=== PATIENT | female | born 1965 | race Caucasian/White ===

== ENCOUNTER 2017-02-19 23:24 | Emergency (ER) | payer BC, OTHER ==
[~2017-02-19] VITALS: Ht 157.5 cm; Wt 64.0 kg
[~2017-02-19 23:24] MED LIST: ESTR1TAB2 PO; FRRS300 PO; IBUP-1428 PO; MEDR10TA PO
[2017-02-19 23:29] VITALS: TEMP 36.7; Ht 157.5 cm; Wt 64.0 kg
[2017-02-19] MEDS ORDERED: MAGN250T3 PO (23:48)
--- NOTE | 2017-02-19 23:49 | EMERGENCY ROOM VISIT NOTE ---
History First contact with patient: 23:40 Chief Complaint: SHOULDER PAIN Stated Complaint: SHOULDER PAIN, FELL ON IT History of Present Illness The patient is a 52 year old female who presents to the Emergency Room with complaints of right shoulder pain after a fall. The patient states that she was walking out of her camper and missed a step, causing her to fall onto her right shoulder. She rates her current discomfort a 5/10. She states that she struck her right cheek lately on the ground. There was no loss of consciousness. She denies any headache, nausea or vomiting. She denies any numbness or weakness. She denies any previous injuries to his shoulder. She did not take anything for pain. Her pain is worsened by movement. Review of Systems A complete 10 point review of systems was reviewed with the patient with pertinent positives and negatives as per history of present illness. All else were negative. Social History Smoking Status: Never Smoker Marital Status: Current/Historical Medications Scheduled Magnesium (Magnesium 250 mg), 500 MG PO DAILY Allergies Coded Allergies: No Known Allergies (Unverified , 02/19/17) Physical Exam Vital Signs Date Time Temp Pulse Resp B/P (MAP) Pulse Ox O2 Delivery O2 Flow Rate FiO2 02/19/17 23:29 36.7 78 16 143/85 98 Room Air Physical Exam VITALS: Vitals are noted on the nurse's note and reviewed by myself. Vital signs stable. GENERAL: This is a 52-year-old female, in no acute distress, nondiaphoretic, well-developed well-nourished. SKIN: No erythema, edema or bruising. HEENT: Normocephalic. PERRLA. EOMI. Nares patent. Mucous membranes moist. Neck is supple without nuchal rigidity. HEART: Regular rate and rhythm without murmurs gallops or rubs. LUNGS: Clear to auscultation bilaterally without wheezes, rales or rhonchi. MUSCULOSKELETAL: There is mild tenderness to palpation of the right lateral shoulder/proximal humerus. Full range of motion of the shoulder and the right upper extremity. Radial pulse 2+. NEURO: Patient was alert and oriented to person place and time. Normal sensation to light and sharp touch. Medical Decision & Procedures ER Provider Diagnostic Interpretation: RIGHT SHOULDER X-RAY: No obvious fractures or dislocations identified. Medical Decision Differential diagnosis includes fracture, contusion, dislocation, sprain, among others. The patient was evaluated as above. X-ray of the right shoulder was obtained and reviewed by myself and does not show any obvious fractures. Patient was placed in an arm sling for her comfort. She was advised to follow-up with her primary care provider or orthopedics if she has continued pain. The patient verbalized understanding of my assessment and treatment plan and was discharged home in good condition. Impression Primary Impression: Contusion of right shoulder Departure Information Dispostion Home / Self-Care Condition GOOD Referrals No Doctor, Assigned (PCP) Patient Instructions My [facility] Additional Instructions You have been treated in the Emergency Department for Shoulder Pain. For pain control, you can use the following [id number] medicines (if >12 yo): - Regular strength (325mg/tab) Tylenol (acetaminophen) 2 tabs every 4-6 hours as needed. Do not exceed 12 tablets in a 24 hour period. Avoid taking more than 4 grams (4000 mg) of Tylenol per day. This includes any other sources of acetaminophen you may take on a regular basis. - Regular strength (200 mg/tab) Advil (ibuprofen) 1-2 tabs every 4-6 hours as needed. Do not exceed a dose of 3200 mg per day. If this is a recent injury (<24 hrs), ice can be applied to the area of pain for the first 3 days to help decrease pain and inflammation. Wear the sling as needed for your comfort. Make sure you are taking the arm out of the sling several times daily to perform range of motion exercises. Follow-up with orthopedics or your primary care provider if you have persistent or worsening pain. Return to the Emergency Department if your current symptoms worsen despite treatment course outlined above, or if you develop any of the following symptoms : intractable pain despite aforementioned treatment course or new onset of numbness or tingling of the arm. Problem Qualifiers Primary Impression: Contusion of right shoulder Encounter type: initial encounter Qualified Codes: S40.011A - Contusion of right shoulder, initial encounter
[2017-02-20 00:22] VITALS: BP 143/85; PULSE 78; O2SAT 98
--- NOTE | 2017-02-20 07:11 | DIAGNOSTIC IMAGING REPORT ---
RIGHT SHOULDER MIN 2 VIEWS ROUTINE CLINICAL HISTORY: 52 years-old Female presenting with right shoulder pain, fall Right. TECHNIQUE: Internal rotation, external rotation, and Grashey views of the right shoulder were obtained. COMPARISON: None. FINDINGS: No acute fracture or malalignment. Limited rotation of the humeral head is noted comparing internal rotation versus external rotation views, although this may be related to suboptimal patient positioning. Glenohumeral and acromioclavicular joints congruent. No degenerative change. Visualized portion of the right hemithorax normal. IMPRESSION: No acute osseous injury of the right shoulder. Electronically signed by: Kaiden Santiago M.D. 02/20/2017 7:10 AM Dictated Date/Time: 02/20/2017 7:09 AM
== END 2017-02-20 00:23 | disposition home or self-care (01) ==
LOC: C.EDB 23:25
DX: S40.011A Contusion of right shoulder, initial encounter (principal); W10.8XXA Fall (on) (from) other stairs and steps, initial encounter